=== PATIENT | male | born 1945 | race Caucasian/White ===

== ENCOUNTER 2016-12-06 14:50 | Emergency (ER) | payer BC, MEDICARE ==
[~2016-12-06] VITALS: Ht 170.2 cm; Wt 57.2 kg
[2016-12-06] MEDS ORDERED: MELO7.5T6 PO (15:04)
[2016-12-06] MEDS ORDERED: CYCL10TA PO (15:04)
[2016-12-06] MEDS ORDERED: levothyroxine PO (15:04)
[2016-12-06] MEDS ORDERED: ASPI81TA85 PO (15:04)
[2016-12-06 17:33] VITALS: BP 146/72
[2016-12-06] MEDS ORDERED: PRED20TA PO (17:39)
[2016-12-06] MEDS ORDERED: ULTR50TA PO (17:40)
--- NOTE | 2016-12-06 18:16 | REP ---
Right hip series: Two views. History: Pain. Findings: AP and frog-leg views of the right hip demonstrate osteoarthritis with some superior joint space narrowing and femoral and acetabular spurring. No bony erosive or destructive lesion is seen. Vascular calcification is noted. Periarticular soft tissues are otherwise unremarkable. Impression: Mild to moderate right hip joint osteoarthritis. No acute bony abnormality. Signed by Jef Cox MD 12/06/2016 07:00 P
== END 2016-12-06 17:50 | disposition home or self-care (01) ==
LOC: M ED 15:54
DX: M16.11 Unilateral primary osteoarthritis, right hip (principal); M25.50 Pain in unspecified joint; F17.210 Nicotine dependence, cigarettes, uncomplicated; Z79.899 Other long term (current) drug therapy; Z79.82 Long term (current) use of aspirin

== ENCOUNTER 2019-01-20 18:46 | Emergency (ER) | payer MEDICARE, OTHER ==
[~2019-01-20] VITALS: Ht 170.2 cm; Wt 52.3 kg
[~2019-01-20 18:46] MED LIST: ASPI81TA85 PO; CYCL10TA PO; MELO7.5T7 PO; PRED20TA PO; ULTR50TA8 PO; levothyroxine PO
[2019-01-20] MEDS ORDERED: FLOM0.4C39 PO (19:02)
[2019-01-20] MEDS ORDERED: FINA5TAB2 PO (19:02)
[2019-01-20] MEDS ORDERED: ATOR40TA75 PO (19:02)
[2019-01-20] MEDS ORDERED: KETOROLAC 30 MG/ML VIAL (J1885) IV ONE (19:45)
[2019-01-20 20:07] LABS: BASO # 0.1 10^3/uL (0.0-0.2); BASO % 0.6 % (0.0-1.0); EOS # 0.4 10^3/uL (0.0-0.50); EOS % 3.9 % (0.0-3.0); HEMATOCRIT 36.2 % (42.0-52.0); HEMOGLOBIN 11.6 g/dl (13.5-17.5); LYMPH # 2.4 10^3/uL (1.5-4.5); LYMPH % 26.4 % (24.0-44.0); MEAN CORPUSCULAR HEMOGLOBIN 29.1 pg (27.0-33.0); MEAN CORPUSCULAR VOLUME 90.7 fl (80.0-96.0); MONO # 0.7 10^3/uL (0.0-0.8); MONO % 7.3 % (0.0-5.0); NEUTROPHILS # 5.6 10^3/uL (1.8-7.7); NEUTROPHILS % 61.6 % (36.0-66.0); PLATELET COUNT, AUTOMATED 209 10^3/uL (150-450); RED BLOOD COUNT 3.99 10^6/uL (4.30-6.10)
[2019-01-20] MEDS ORDERED: ISOVUE-370 76% 100ML VIAL (Q9967) As Ordered ONE (20:17)
--- NOTE | 2019-01-20 22:06 | REPVR ---
EXAM: CT Abdomen and Pelvis With Contrast EXAM DATE/TIME: 01/20/2019 8:23 PM CLINICAL HISTORY: 73 years old, male; Abdominal pain; Localized; Lower; Additional info: Lower abd pain, R inguinal bulge TECHNIQUE: Imaging protocol: Axial computed tomography images of the abdomen and pelvis with intravenous contrast. Coronal and sagittal reformatted images were created and reviewed. Radiation optimization: All CT scans at this facility use at least one of these dose optimization techniques: automated exposure control; mA and/or kV adjustment per patient size (includes targeted exams where dose is matched to clinical indication); or iterative reconstruction. Contrast material: ISOVUE 370;Contrast volume: 100 ml;Contrast route: IV; COMPARISON: CR Hip, Ap,Lat 12/06/2016 5:03 PM FINDINGS: Liver: Normal. No mass. Gallbladder and bile ducts: Normal. No calcified stones. No ductal dilation. Pancreas: Normal. No ductal dilation. Spleen: Normal. No splenomegaly. Adrenals: Normal. No mass. Kidneys and ureters: There are punctate bilateral renal calcifcations without hydronephrosis. Stomach and bowel: Extensive diverticulosis without diverticulitis. Mild jejunal thickening. No obstruction. Appendix: No evidence of appendicitis. Intraperitoneal space: Normal. No free air. No significant fluid collection. Vasculature: There is atherosclerosis of the aorta. Lymph nodes: Normal. No enlarged lymph nodes. Bladder: Unremarkable as visualized. Reproductive: Unremarkable as visualized. Bones/joints: There is L5-S1 disc space narrowing and endplate osteophytosis with severe bilateral neural foraminal narrowing. Soft tissues: Unremarkable. IMPRESSION: Mild jejunal thickening which can be seen with enteritis. Electronically signed by: Fauzia Ramirez On 01/20/2019 22:05:52 PM
[2019-01-20 22:25] VITALS: BP 135/62
== END 2019-01-20 22:33 | disposition home or self-care (01) ==
LOC: M ED 18:46
DX: K40.90 Unilateral inguinal hernia, without obstruction or gangrene, not specified as recurrent (principal); R10.31 Right lower quadrant pain; E78.5 Hyperlipidemia, unspecified; E03.9 Hypothyroidism, unspecified; Z72.0 Tobacco use; Z79.899 Other long term (current) drug therapy
CPT/HCPCS: 74177; 80047; 85025; 96374; 99284; J1885; Q9967

== ENCOUNTER 2019-08-05 17:30 | Emergency (ER) | payer OTHER ==
[~2019-08-05] VITALS: Ht 170.2 cm; Wt 53.2 kg
[~2019-08-05 17:30] MED LIST changes: +ATOR40TA75 PO; +FINA5TAB2 PO; +FLOM0.4C39 PO
[2019-08-05] MEDS ORDERED: MECLIZINE 25 MG TABLET PO ONE (19:00)
[2019-08-05] MEDS ORDERED: NS 1,000 ML IV ONE (19:00)
[2019-08-05] MEDS ORDERED: BUPIVACAINE HCL 0.25% 10 ML VIAL SC ONE (19:00)
[2019-08-05 19:12] LABS: BASO % 0.3 % (0.0-1.0); EOS % 0.2 % (0.0-3.0); HEMATOCRIT 37.4 % (42.0-52.0); HEMOGLOBIN 11.9 g/dl (13.5-17.5); LYMPH # 1.6 10^3/uL (1.5-5.0); LYMPH % 13.3 % (24.0-44.0); MEAN CORPUSCULAR HEMOGLOBIN 28.1 pg (27.0-33.0); MEAN CORPUSCULAR HGB CONC 31.8 g/dl (32.0-36.5); MEAN CORPUSCULAR VOLUME 88.4 fl (80.0-96.0); MONO % 7.7 % (0.0-5.0); NEUTROPHILS # 9.6 10^3/uL (1.5-8.5); NEUTROPHILS % 78.1 % (36.0-66.0); PLATELET COUNT, AUTOMATED 187 10^3/uL (150-450); RED BLOOD COUNT 4.23 10^6/uL (4.30-6.10); WHITE BLOOD COUNT 12.3 10^3/uL (4.0-10.0)
--- NOTE | 2019-08-05 19:19 | REPVR ---
PROCEDURE INFORMATION: Exam: CT Head Without Contrast Exam date and time: 08/05/2019 6:57 PM Age: 74 years old Clinical indication: Dizziness TECHNIQUE: Imaging protocol: Computed tomography of the head without contrast. Radiation optimization: All CT scans at this facility use at least one of these dose optimization techniques: automated exposure control; mA and/or kV adjustment per patient size (includes targeted exams where dose is matched to clinical indication); or iterative reconstruction. COMPARISON: No relevant prior studies available. FINDINGS: Brain: There is no acute cortical infarction, intracranial hemorrhage or mass. Ventricles: The ventricles appear mildly enlarged, but not out of proportion to the degree of parenchymal volume loss. Bones/joints: Unremarkable. No acute fracture. Sinuses: Visualized sinuses are unremarkable. No fluid levels. Mastoid air cells: Visualized mastoid air cells are well aerated. Soft tissues: Unremarkable. IMPRESSION: No acute intracranial findings. Electronically signed by: Swathi La On 08/05/2019 19:18:48 PM
[2019-08-05 19:44] LABS: ALBUMIN 3.4 GM/DL (3.2-5.2); ALT/SGPT 21 U/L (12-78); BILIRUBIN,DIRECT 0.3 MG/DL (0.0-0.2); BILIRUBIN,TOTAL 0.8 MG/DL (0.2-1.0); BLOOD UREA NITROGEN 27 MG/DL (7-18); CALCIUM LEVEL 8.6 MG/DL (8.8-10.2); CARBON DIOXIDE LEVEL 27 MEQ/L (21-32); CHLORIDE LEVEL 101 MEQ/L (98-107); CK-MB VALUE MASS 5.2 NG/ML (<3.6); CPK CREATINE PHOSPHOKINASE 262 U/L (39-308); CREATININE FOR GFR 1.26 MG/DL (0.70-1.30); GLOMERULAR FILTRATION RATE 59.7 (>42); GLUCOSE, FASTING 79 MG/DL (70-100); MB/CK RELATIVE INDEX 1.98 (< OR =4); POTASSIUM SERUM 4.2 MEQ/L (3.5-5.1); SODIUM LEVEL 137 MEQ/L (136-145); TOTAL PROTEIN 6.5 GM/DL (6.4-8.2); TROPONIN I < 0.02 NG/ML (< 0.10)
[2019-08-05 20:45] VITALS: BP 123/60
[2019-08-05] MEDS ORDERED: CETI10CA2 PO (20:53)
[2019-08-05] MEDS ORDERED: FLON1SPR NARES (20:53)
[2019-08-05] MEDS ORDERED: MECL1TAB31 PO (20:53)
--- NOTE | 2019-08-06 05:50 | ECGEPIP ---
[facility] - ED Test Date: 2019-08-05 Pat Name: LES HUA Department: Room: - Gender: Male Management Professor: BRUCE : 1945 Requested By: TONY PRICE Order Number: [id number] Reading MD: Tony Terrazas Measurements Intervals [place] Rate: 72 P: 79 CA: 207 QRS: 58 QRSD: 93 T: 73 QT: 387 QTc: 426 Interpretive Statements SINUS RHYTHM Comparison tracing not on file Electronically Signed on 08-06-2019 5:50:32 EST by Tony Terrazas
== END 2019-08-05 21:46 | disposition home or self-care (01) ==
LOC: M ED 17:30
DX: H65.03 Acute serous otitis media, bilateral (principal); H81.399 Other peripheral vertigo, unspecified ear; M25.512 Pain in left shoulder; E78.5 Hyperlipidemia, unspecified; F17.210 Nicotine dependence, cigarettes, uncomplicated; Z79.899 Other long term (current) drug therapy

== ENCOUNTER 2019-12-26 14:00 | Emergency (ER) | payer MEDICARE, OTHER ==
[~2019-12-26] VITALS: Ht 170.2 cm; Wt 51.2 kg
[~2019-12-26 14:00] MED LIST changes: +CETI10CA2 PO; +CYCL-707 PO; -CYCL10TA PO; +FLON1SPR NARES; +MECL1TAB31 PO
[2019-12-26 14:51] LABS: BASO # 0.1 10^3/uL (0.0-0.2); BASO % 0.8 % (0.0-1.0); EOS # 0.5 10^3/uL (0.0-0.5); EOS % 7.3 % (0.0-3.0); HEMATOCRIT 38.8 % (42.0-52.0); LYMPH # 2.5 10^3/uL (1.5-5.0); LYMPH % 39.1 % (24.0-44.0); MEAN CORPUSCULAR HEMOGLOBIN 27.8 pg (27.0-33.0); MEAN CORPUSCULAR HGB CONC 30.9 g/dl (32.0-36.5); MONO # 0.4 10^3/uL (0.0-0.8); NEUTROPHILS # 2.9 10^3/uL (1.5-8.5); NEUTROPHILS % 45.6 % (36.0-66.0); PLATELET COUNT, AUTOMATED 213 10^3/uL (150-450); RED BLOOD COUNT 4.31 10^6/uL (4.30-6.10); WHITE BLOOD COUNT 6.3 10^3/uL (4.0-10.0)
--- NOTE | 2019-12-26 14:57 | REP ---
Clinical: Chest pain . Comparison: 03/23/2013 . Findings: The mediastinum and cardiac silhouette are stable and within normal limits for portable technique. The lung harris demonstrate chronic changes without acute consolidation, effusion, or pneumothorax. Skeletal structures are intact. Impression: No acute cardiopulmonary process appreciated. Electronically Signed by Kun Mabry MD 12/26/2019 02:48 P
[2019-12-26 15:02] LABS: INR 1.02; PROTHROMBIN TIME 13.1 SECONDS (11.8-14.0)
[2019-12-26 15:03] LABS: PARTIAL THROMBOPLASTIN TIME 29.8 SECONDS (25.0-38.4)
--- NOTE | 2019-12-26 15:07 | REP ---
Clinical: Neck pain radiating to the left shoulder. Technique: Axial noncontrast images from the skull base to the thoracic inlet with coronal and sagittal re-formations. Comparison: None Findings: Osteopenia and advanced multilevel degenerative changes are appreciated. Generalized findings include endplate sclerosis, osteophytosis, and elements of disc space narrowing. Partially calcified disc material and posterior disc bulge at C5-6, C7-T1, and small posterior disc bulge at C4-5 are identified along with partial fusion of the C6-7. Associated canal stenosis at the C5-6 level to approximately 7.5 mm AP diameter noted. Multilevel facet arthropathy with narrowing of the neural foramen primarily noted at the left C4-5 and 05/06 levels is also appreciated. There is no evidence for acute fracture / compression injury or acute subluxation. Paravertebral soft tissues are within normal limits. Impression: Advanced multilevel degenerative spondylosis. Electronically Signed by Kun Mabry MD 12/26/2019 02:58 P
[2019-12-26 15:22] LABS: ALBUMIN 4.1 GM/DL (3.2-5.2); ALT/SGPT 22 U/L (12-78); BILIRUBIN,DIRECT 0.2 MG/DL (0.0-0.2); BILIRUBIN,TOTAL 0.5 MG/DL (0.2-1.0); BLOOD UREA NITROGEN 17 MG/DL (7-18); CARBON DIOXIDE LEVEL 29 MEQ/L (21-32); CHLORIDE LEVEL 108 MEQ/L (98-107); CK-MB VALUE MASS 4.5 NG/ML (<3.6); CPK CREATINE PHOSPHOKINASE 228 U/L (39-308); CREATININE FOR GFR 1.12 MG/DL (0.70-1.30); GLOMERULAR FILTRATION RATE > 60.0 (>42); GLUCOSE, FASTING 76 MG/DL (70-100); LIPASE 117 U/L (73-393); MB/CK RELATIVE INDEX 1.97 (< OR =4); POTASSIUM SERUM 4.5 MEQ/L (3.5-5.1); SODIUM LEVEL 142 MEQ/L (136-145); TOTAL PROTEIN 6.9 GM/DL (6.4-8.2); TROPONIN I < 0.02 NG/ML (< 0.10)
[2019-12-26] MEDS ORDERED: GABA-1171 PO (15:39)
--- NOTE | 2019-12-26 15:59 | ECGEPIP ---
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
[2019-12-26 16:10] VITALS: BP 156/72
== END 2019-12-26 16:11 | disposition home or self-care (01) ==
LOC: M ED 14:00
DX: M50.10 Cervical disc disorder with radiculopathy, unspecified cervical region (principal); E78.5 Hyperlipidemia, unspecified; E03.9 Hypothyroidism, unspecified; F17.210 Nicotine dependence, cigarettes, uncomplicated; Z79.899 Other long term (current) drug therapy

== ENCOUNTER 2020-12-19 17:53 | Emergency (ER) | payer MEDICARE, OTHER ==
[~2020-12-19] VITALS: Ht 170.2 cm; Wt 52.1 kg
[~2020-12-19 17:53] MED LIST changes: -ASPI81TA85 PO; +ASPI81TA86 PO; +GABA-1171 PO
[2020-12-19 19:47] LABS: HEMOGLOBIN 11.6 g/dl (13.5-17.5); MEAN CORPUSCULAR HEMOGLOBIN 27.6 pg (27.0-33.0); MEAN CORPUSCULAR HGB CONC 31.4 g/dl (32.0-36.5); MEAN CORPUSCULAR VOLUME 87.9 fl (80.0-96.0); PLATELET COUNT, AUTOMATED 218 10^3/uL (150-450); RED BLOOD COUNT 4.21 10^6/uL (4.30-6.10); WHITE BLOOD COUNT 9.1 10^3/uL (4.0-10.0)
[2020-12-19 20:04] LABS: BLOOD UREA NITROGEN 19 MG/DL (7-18); CALCIUM LEVEL 8.6 MG/DL (8.8-10.2); CARBON DIOXIDE LEVEL 30 MEQ/L (21-32); CHLORIDE LEVEL 109 MEQ/L (98-107); GLOMERULAR FILTRATION RATE > 60.0 (>42); GLUCOSE, FASTING 91 MG/DL (70-100); POTASSIUM SERUM 4.9 MEQ/L (3.5-5.1); SODIUM LEVEL 139 MEQ/L (136-145)
[2020-12-19] MEDS ORDERED: NS 1,000 ML IV ONE (20:55)
[2020-12-19] MEDS ORDERED: ISOVUE-370 76% 100ML VIAL As Ordered ONE (21:04)
[2020-12-19 21:13] LABS: ALBUMIN 3.5 GM/DL (3.2-5.2); ALT/SGPT 19 U/L (12-78); BILIRUBIN,DIRECT 0.1 MG/DL (0.0-0.2); BILIRUBIN,TOTAL 0.4 MG/DL (0.2-1.0); LIPASE 137 U/L (73-393); TOTAL PROTEIN 6.4 GM/DL (6.4-8.2)
--- NOTE | 2020-12-19 22:17 | REPVR ---
PROCEDURE INFORMATION: Exam: CT Abdomen And Pelvis With Contrast Exam date and time: 12/19/2020 9:14 PM Age: 75 years old Clinical indication: Other: Rlq abd pain; Additional info: Right lower quadrant abdominal pain TECHNIQUE: Imaging protocol: Computed tomography of the abdomen and pelvis with contrast. Radiation optimization: All CT scans at this facility use at least one of these dose optimization techniques: automated exposure control; mA and/or kV adjustment per patient size (includes targeted exams where dose is matched to clinical indication); or iterative reconstruction. Contrast material: ISOVUE 370; Contrast volume: 100 ml; Contrast route: INTRAVENOUS (IV); COMPARISON: CT ABD/PEL W/IV CONTRAST ONLY 01/20/2019 8:22 PM FINDINGS: Liver: Unremarkable. No mass. Gallbladder and bile ducts: Normal. No calcified stones. No ductal dilation. Pancreas: Normal. No ductal dilation. Spleen: Normal. No splenomegaly. Adrenal glands: Normal. No mass. Kidneys and ureters: Unremarkable. No calculi or hydronephrosis. Stomach and bowel: Mild intraluminal fluid and mucosal enhancement in the small bowel. No wall thickening or other inflammatory changes. No bowel obstruction. Moderate amount of fecal material in the colon. The stomach and colon are otherwise unremarkable. Appendix: No evidence of appendicitis. Intraperitoneal space: No free air. No significant fluid collection. Vasculature: Advanced aortoiliac atherosclerotic disease. No aneurysm or dissection. Lymph nodes: Unremarkable. No enlarged lymph nodes. Urinary bladder: Unremarkable as visualized. Reproductive: Unremarkable as visualized. Bones/joints: There are advanced degenerative changes in the spine and pelvis. Soft tissues: Unremarkable. IMPRESSION: 1. Mild mucosal enhancement and intraluminal fluid in the small bowel is nonspecific but may indicate a viral enteritis. No bowel obstruction. 2. Constipation. Electronically signed by: Gurwinder Can On 12/19/2020 22:16:38 PM
[2020-12-19] MEDS ORDERED: MAGNESIUM CITRATE 300 ML BTL PO ONE (22:45)
[2020-12-19 22:58] VITALS: BP 159/74
== END 2020-12-19 23:00 | disposition home or self-care (01) ==
LOC: M ED 17:53
DX: K40.90 Unilateral inguinal hernia, without obstruction or gangrene, not specified as recurrent (principal); K59.00 Constipation, unspecified; E03.9 Hypothyroidism, unspecified; E78.5 Hyperlipidemia, unspecified; Z79.899 Other long term (current) drug therapy
CPT/HCPCS: 74177; 80048; 80076; 83690; 85027; 99283; Q9967

== ENCOUNTER → 2021-02-05 | Outpatient (CLI) | payer MEDICARE, OTHER | LOC: M LABSMTC 09:06 | PROVIDERS: ATTEND Anesthesiology | DX: Z01.818 Encounter for other preprocedural examination (principal); Z11.52 Encounter for screening for COVID-19 ==

== ENCOUNTER 2021-02-09 07:30 | Day surgery (SDC) | payer OTHER ==
[~2021-02-09] VITALS: Ht 170.2 cm; Wt 49.4 kg
[~2021-02-09 07:30] MED LIST changes: +B-122500 PO; +DONETAB5 PO; +GABA-282 PO; +LEVO88TA3 PO; +LR 1,000 ML IV ONE; +MELO15TA28 PO; +NOXI1TAB PO; +ceFAZolin SOD 2 GM in IV 1 EA IV ONE
[2021-02-09] MEDS ORDERED: BUPIVACAINE/EPIN 0.25% 30 ML VIAL As Ordered ONE (09:23)
[2021-02-09] MEDS ORDERED: ROCURONIUM BROMIDE 50 MG/5 ML VIAL As Ordered ONE (09:50)
[2021-02-09] MEDS ORDERED: METOCLOPRAMIDE INJ 10MG/2ML VIAL (J2765 PER 1) As Ordered ONE (09:50)
[2021-02-09] MEDS ORDERED: MIDAZOLAM INJ 2MG/2ML VIAL (J2250 PER 1MG) As Ordered ONE (09:50)
[2021-02-09] MEDS ORDERED: propofoL 200 MG/20 ML VIAL As Ordered ONE (09:50)
[2021-02-09] MEDS ORDERED: ONDANSETRON 4MG/2ML VIAL As Ordered ONE (09:50)
[2021-02-09] MEDS ORDERED: LIDOCAINE 2% 100MG/5ML SDV (FOR ANES.) As Ordered ONE (09:50)
[2021-02-09] MEDS ORDERED: fentaNYL 250 MCG/5 ML INJECTION (J3010) As Ordered ONE (09:50)
[2021-02-09] MEDS ORDERED: dexameTHASONE 4 MG/ML 1ML VIAL (J1100 PER 1MG) As Ordered ONE (09:50)
[2021-02-09] MEDS ORDERED: SUGAMMADEX SODIUM 500 MG/5 ML VIAL (BRIDION) As Ordered ONE (09:50)
[2021-02-09] MEDS ORDERED: ACETAMINOPHEN 1000MG 100ML IV BTL (OFIRMEV) (J0131 PER 10MG) As Ordered ONE (09:51)
[2021-02-09] MEDS ORDERED: KETOROLAC 60MG 2ML VIAL As Ordered ONE (09:58)
[2021-02-09] MEDS ORDERED: oxyCODONE 5MG TAB PO PRN (11:05)
[2021-02-09] MEDS ORDERED: fentaNYL 100 MCG/2 ML INJECTION (J3010) IV PRN (11:05)
[2021-02-09] MEDS ORDERED: METOCLOPRAMIDE INJ 10MG/2ML VIAL (J2765 PER 1) IV PRN (11:05)
[2021-02-09] MEDS ORDERED: ONDANSETRON 4MG/2ML VIAL IV PRN (11:05)
[2021-02-09] MEDS ORDERED: LR 1,000 ML IV SCH (11:05)
[2021-02-09] MEDS ORDERED: traMADol 50 MG TAB PO PRN (11:15)
--- NOTE | 2021-02-09 11:35 | RO ---
OPERATIVE NOTE DATE OF OPERATION: 02/09/2021 PREOPERATIVE DIAGNOSIS: Right inguinal hernia. POSTOPERATIVE DIAGNOSIS: Right inguinal/femoral hernia. PROCEDURE: Robotic-assisted laparoscopic right inguinal/femoral hernia repair with ProGrip mesh. SURGEON: Andrei Thompson Jr, MD SOLUTIONS DEVELOPER: Libertad Iglesias (provided trocar placement, instrument exchange, mesh placement, abdominal wall closure). ANESTHESIA: EBL: Minimal. FLUIDS: Crystalloid. DESCRIPTION OF PROCEDURE: The patient was taken to the operating room, was given general anesthesia. After adequate anesthesia and preoperative antibiotics were given, the patient was prepped and draped in sterile fashion. A supraumbilical incision was made with skin knife. Blunt dissection was carried down to fascia. Fascia was entered with Veress needle, insufflated to 15 mm of pressure. Dilating 8 mm trocar was placed and under direct visualization two lateral 8 mm trocars were placed. The patient was placed in steep Trendelenburg and the robot was docked. The right inguinal area was dissected in the following manner: The peritoneum was taken down with monopolar cut scissors and a plane was entered and dissected off the cord structures, then medially off the vessels, the vas and the Yosvany's ligament area where femoral hernia was appreciated. There was also somewhat of significant diastasis of the abdominal wall where a direct hernia would be and just lateral to the epigastrics as well. This was more pronounced on the right-hand side than the left-hand side. In any case, after mobilizing the contents out of the femoral canal and off Yosvany's ligament, the ProGrip mesh was cut to the appropriate size, placed in preperitoneal space and pressed into position. Abdomen was desufflated to 9 mm of pressure and the peritoneum was closed over the defect with 3-0 V-Loc suture. All trocars were removed under direct visualization. 4-0 Vicryl was used to close all skin. Steri-Strips and dry, sterile dressing were applied. The patient was awakened, extubated and brought to the recovery room awake, alert, hemodynamically stable. Sponge and needle counts correct x2.
[2021-02-09 12:15] VITALS: BP 150/64
== END 2021-02-09 12:25 | disposition home or self-care (01) ==
LOC: M SDC 07:30
PROVIDERS: ATTEND Surgery
DX: K40.90 Unilateral inguinal hernia, without obstruction or gangrene, not specified as recurrent (principal); E78.00 Pure hypercholesterolemia, unspecified; E03.9 Hypothyroidism, unspecified; K59.00 Constipation, unspecified; M54.9 Dorsalgia, unspecified; G62.9 Polyneuropathy, unspecified; N40.0 Benign prostatic hyperplasia without lower urinary tract symptoms; J44.9 Chronic obstructive pulmonary disease, unspecified; F17.210 Nicotine dependence, cigarettes, uncomplicated; Z79.899 Other long term (current) drug therapy
CPT/HCPCS: 49650; C1781; J0131; J0690; J1100; J1885; J2250; J2405; J2765; J3010; S2900

== ENCOUNTER → 2021-09-26 | Outpatient (CLI) | payer OTHER ==
[~2021-09-26] MED LIST changes: +ATOR80TA59 PO; +DONE5TAB86 PO; -DONETAB5 PO; +FLOV250A IN; -LR 1,000 ML IV ONE; +OMEP40CA5 PO; +PROAAER10 INH; +ROSU40TA4 PO; +VITA-183 PO; -ceFAZolin SOD 2 GM in IV 1 EA IV ONE
== END ==
LOC: M LABSMTC 09:08
PROVIDERS: ATTEND Anesthesiology
DX: Z01.818 Encounter for other preprocedural examination (principal); Z11.52 Encounter for screening for COVID-19

== ENCOUNTER 2021-10-01 11:05 | Day surgery (SDC) | payer OTHER ==
[~2021-10-01] VITALS: Ht 165.1 cm; Wt 46.7 kg
[~2021-10-01 11:05] MED LIST changes: +NS 1,000 ML IV ONE
[2021-10-01] MEDS ORDERED: LIDOCAINE 2% 100MG/5ML SDV (FOR ANES.) As Ordered ONE (12:41)
[2021-10-01] MEDS ORDERED: propofoL 200 MG/20 ML VIAL As Ordered ONE (12:41)
[2021-10-01] MEDS ORDERED: fentaNYL 100 MCG/2 ML INJECTION As Ordered ONE (12:42)
[2021-10-01 13:30] VITALS: BP 151/70
== END 2021-10-01 13:40 | disposition home or self-care (01) ==
LOC: M OPP 11:05
PROVIDERS: ATTEND Internal Medicine Gastroenterology
DX: Z12.11 Encounter for screening for malignant neoplasm of colon (principal); K57.30 Diverticulosis of large intestine without perforation or abscess without bleeding; K64.8 Other hemorrhoids; K22.89 Other specified disease of esophagus; K22.4 Dyskinesia of esophagus; K29.70 Gastritis, unspecified, without bleeding; R63.4 Abnormal weight loss; R53.83 Other fatigue; Z79.899 Other long term (current) drug therapy; Z80.8 Family history of malignant neoplasm of other organs or systems
CPT/HCPCS: 43239; 45378; 88305; 88312; 88342; J3010

== ENCOUNTER → 2021-11-02 | Outpatient (CLI) | payer OTHER ==
[~2021-11-02] MED LIST changes: -NS 1,000 ML IV ONE
== END ==
LOC: M RAD 08:14
PROVIDERS: ATTEND Internal Medicine Gastroenterology
DX: N20.0 Calculus of kidney (principal); K82.0 Obstruction of gallbladder

== ENCOUNTER → 2021-12-27 | Outpatient (REF) | payer OTHER | LOC: M LAB REF 10:18 | PROVIDERS: ATTEND Internal Medicine Gastroenterology | DX: R63.4 Abnormal weight loss (principal) ==

== ENCOUNTER 2022-03-29 11:41 | Inpatient (IN) | payer OTHER ==
[~2022-03-29] VITALS: Ht 167.6 cm; Wt 48.3 kg
[2022-03-29] MEDS ORDERED: MAGN400T2 PO (12:02)
[2022-03-29 12:50] LABS: BASO # 0.1 10^3/uL (0.0-0.2); BASO % 0.4 % (0.0-1.0); EOS # 0.2 10^3/uL (0.0-0.5); EOS % 1.1 % (0.0-3.0); HEMATOCRIT 33.6 % (42.0-52.0); HEMOGLOBIN 10.4 g/dl (13.5-17.5); LYMPH # 2.3 10^3/uL (1.5-5.0); LYMPH % 15.1 % (24.0-44.0); MEAN CORPUSCULAR HEMOGLOBIN 28.1 pg (27.0-33.0); MEAN CORPUSCULAR VOLUME 90.8 fl (80.0-96.0); MONO # 0.8 10^3/uL (0.0-0.8); MONO % 5.2 % (2.0-8.0); NEUTROPHILS % 77.8 % (36.0-66.0); PLATELET COUNT, AUTOMATED 234 10^3/uL (150-450); WHITE BLOOD COUNT 15.4 10^3/uL (4.0-10.0)
[2022-03-29 13:30] LABS: RSV AMPLIFICATION NEGATIVE (NEGATIVE)
[2022-03-29 13:40] LABS: ALBUMIN 3.4 GM/DL (3.2-5.2); BILIRUBIN,DIRECT 0.2 MG/DL (0.0-0.2); BILIRUBIN,TOTAL 0.6 MG/DL (0.2-1.0); CALCIUM LEVEL 9.4 MG/DL (8.8-10.2); CREATININE FOR GFR 1.85 MG/DL (0.70-1.30); POTASSIUM SERUM 3.8 MEQ/L (3.5-5.1); THYROID STIMULATING HORMONE 1.32 uIU/ML (0.358-3.740); THYROXINE (T4) 10.9 UG/DL (4.5-12.0); TOTAL PROTEIN 6.9 GM/DL (6.4-8.2)
[2022-03-29 13:44] LABS: CK-MB VALUE MASS 6.9 NG/ML (<3.6); MB/CK RELATIVE INDEX 4.08 (< OR =4)
[2022-03-29] MEDS ORDERED: NS 1,480 ML in IV 1 EA IV ONE (14:40)
[2022-03-29] MEDS ORDERED: cefTRIAXone SOD 2 GM in D5W MINI-BAG PLUS 50 ML IV ONE (14:40)
[2022-03-29 16:14] LABS: APPEARANCE, URINE MANUAL CLEAR (CLEAR); COLOR, URINE MANUAL YELLOW (YELLOW)
[2022-03-29 16:16] LABS: PROTEIN, URINE MANUAL TRACE mg/dL (NEGATIVE); SPECIFIC GRAVITY,URINE MANUAL 1.015 (1.002-1.035)
[2022-03-29 16:17] LABS: BILIRUBIN, URINE MANUAL NEGATIVE (NEGATIVE); BLOOD URINE MANUAL POSITIVE (NEGATIVE); GLUCOSE, URINE (UA) MANUAL NEGATIVE (NEGATIVE); KETONE, URINE MANUAL NEGATIVE (NEGATIVE); LEUKOCYTE ESTERASE, URINE MAN NEGATIVE (NEGATIVE); NITRITE, URINE MANUAL NEGATIVE (NEGATIVE); UROBILINOGEN, URINE MANUAL NORMAL (NORMAL)
[2022-03-29 16:44] LABS: BACTERIA, URINE SMALL AMOUNT; HYALINE CAST, URINE NONE SEEN /lpf (0-1); RBC, URINE TNTC /hpf (0-3); SQUAMOUS EPITHELIAL CELL URINE SMALL AMOUNT /hpf (SMALL AMT)
[2022-03-29 16:45] LABS: MUCUS, URINE MOD AMOUNT (NEGATIVE)
[2022-03-29 16:48] LABS: HEMOGLOBIN A1c 5.3 %
[2022-03-29] MEDS ORDERED: ADV100INH INH (17:58)
[2022-03-29] MEDS ORDERED: GABA-1171 PO (17:58)
[2022-03-29] MEDS ORDERED: DONE5TAB82 PO (17:58)
[2022-03-29] MEDS ORDERED: ALBU8.5H INH (17:58)
[2022-03-29] MEDS ORDERED: ALEV220T22 PO (17:59)
[2022-03-29] MEDS ORDERED: HOME MED LIST COMPLETE! XX SCH (18:00)
[2022-03-29] MEDS: NS 1,000 ML IV SCH (18:05)
[2022-03-29] MEDS ORDERED: ALBUTEROL 90 MCG/ACT 8GM HFA INHALER INH PRN (18:15)
[2022-03-29] MEDS: ADVAIR HFA 45/21MCG INHALER INH SCH (20:00)
[2022-03-29] MEDS ORDERED: HEPARIN SOD (PORCINE) 5000UNITS/ML 1ML VIAL/SYRINGE SC SCH (21:00)
[2022-03-29 21:04] VITALS: BP 140/65
[2022-03-29] MEDS: AZITHROMYCIN 250MG TABLET PO SCH (21:21)
[2022-03-29] MEDS: ROSUVASTATIN 10 MG TAB (CRESTOR) PO SCH (21:21)
[2022-03-29] MEDS: ACETAMINOPHEN TAB 650MG DOSE (2X325MG) PO PRN (21:22)
[2022-03-29] MEDS: HEPARIN SOD (PORCINE) 5000UNITS/ML 1ML VIAL/SYRINGE SC SCH (21:22)
[2022-03-29 22:26] VITALS: O2SAT 97
[2022-03-30] VITALS (7 sets, daily range): BP systolic 98–127; BP diastolic 40–60; O2SAT 97–98
[2022-03-30] MEDS: LEVOTHYROXINE 88MCG TABLET (0.088 MG) PO SCH (05:30)
[2022-03-30] MEDS: HEPARIN SOD (PORCINE) 5000UNITS/ML 1ML VIAL/SYRINGE SC SCH ×3 (05:30→21:02)
[2022-03-30] MEDS: NS 1,000 ML IV SCH (05:31)
[2022-03-30 05:33] LABS: BASO % 0.2 % (0.0-1.0); EOS # 0.4 10^3/uL (0.0-0.5); HEMOGLOBIN 8.9 g/dl (13.5-17.5); LYMPH # 1.6 10^3/uL (1.5-5.0); LYMPH % 12.1 % (24.0-44.0); MEAN CORPUSCULAR HGB CONC 30.7 g/dl (32.0-36.5); MEAN CORPUSCULAR VOLUME 91.2 fl (80.0-96.0); MONO # 0.9 10^3/uL (0.0-0.8); NEUTROPHILS % 77.3 % (36.0-66.0); PLATELET COUNT, AUTOMATED 218 10^3/uL (150-450); RED BLOOD COUNT 3.18 10^6/uL (4.30-6.10); WHITE BLOOD COUNT 12.9 10^3/uL (4.0-10.0)
[2022-03-30] MEDS: ACETAMINOPHEN TAB 650MG DOSE (2X325MG) PO PRN ×2 (05:35→14:52)
[2022-03-30 06:05] LABS: BLOOD UREA NITROGEN 30 MG/DL (7-18); CALCIUM LEVEL 8.1 MG/DL (8.8-10.2); CARBON DIOXIDE LEVEL 25 MEQ/L (21-32); CHLORIDE LEVEL 111 MEQ/L (98-107); CREATININE FOR GFR 1.24 MG/DL (0.70-1.30); GLOMERULAR FILTRATION RATE > 60.0 (>42); GLUCOSE, FASTING 89 MG/DL (70-100); POTASSIUM SERUM 3.9 MEQ/L (3.5-5.1); SODIUM LEVEL 140 MEQ/L (136-145)
[2022-03-30] MEDS: ADVAIR HFA 45/21MCG INHALER INH SCH ×2 (07:11→19:42)
[2022-03-30] MEDS: MAGNESIUM OXIDE 400MG TAB (MAG-OX) PO SCH (09:00)
[2022-03-30] MEDS: DONEPEZIL 5 MG TAB PO SCH (09:01)
[2022-03-30] MEDS: TAMSULOSIN 0.4 MG CAP PO SCH (09:01)
[2022-03-30] MEDS: FINASTERIDE 5MG TAB PO SCH (09:01)
[2022-03-30] MEDS: cefTRIAXone SOD 1 GM in D5W MINI-BAG PLUS 50 ML IV SCH (15:41)
[2022-03-30] MEDS ORDERED: NS 1,000 ML IV SCH (20:45)
[2022-03-30] MEDS: AZITHROMYCIN 250MG TABLET PO SCH (21:02)
[2022-03-30] MEDS: ROSUVASTATIN 10 MG TAB (CRESTOR) PO SCH (21:03)
[2022-03-31] MEDS: ACETAMINOPHEN TAB 650MG DOSE (2X325MG) PO PRN ×3 (03:31→21:21)
[2022-03-31] MEDS: HEPARIN SOD (PORCINE) 5000UNITS/ML 1ML VIAL/SYRINGE SC SCH ×3 (05:50→21:20)
[2022-03-31] MEDS: LEVOTHYROXINE 88MCG TABLET (0.088 MG) PO SCH (05:50)
[2022-03-31 05:56] LABS: BASO # 0.1 10^3/uL (0.0-0.2); BASO % 0.6 % (0.0-1.0); EOS # 0.4 10^3/uL (0.0-0.5); EOS % 4.3 % (0.0-3.0); LYMPH # 1.9 10^3/uL (1.5-5.0); LYMPH % 21.5 % (24.0-44.0); MEAN CORPUSCULAR HEMOGLOBIN 28.2 pg (27.0-33.0); MEAN CORPUSCULAR HGB CONC 30.8 g/dl (32.0-36.5); MEAN CORPUSCULAR VOLUME 91.5 fl (80.0-96.0); MONO # 0.6 10^3/uL (0.0-0.8); MONO % 7.1 % (2.0-8.0); NEUTROPHILS # 5.9 10^3/uL (1.5-8.5); NEUTROPHILS % 66.2 % (36.0-66.0); PLATELET COUNT, AUTOMATED 217 10^3/uL (150-450); RED BLOOD COUNT 2.84 10^6/uL (4.30-6.10)
[2022-03-31 06:00] VITALS: BP 116/53
[2022-03-31 06:31] LABS: BLOOD UREA NITROGEN 21 MG/DL (7-18); CALCIUM LEVEL 8.6 MG/DL (8.8-10.2); CARBON DIOXIDE LEVEL 26 MEQ/L (21-32); CHLORIDE LEVEL 111 MEQ/L (98-107); CREATININE FOR GFR 1.23 MG/DL (0.70-1.30); GLOMERULAR FILTRATION RATE > 60.0 (>42); GLUCOSE, FASTING 89 MG/DL (70-100); PHOSPHORUS LEVEL 2.7 MG/DL (2.5-4.9); POTASSIUM SERUM 3.8 MEQ/L (3.5-5.1); SODIUM LEVEL 140 MEQ/L (136-145)
[2022-03-31 08:55] VITALS: BP_SYST 113; BP_SYST 85; BP_DIAS 38; BP_DIAS 54
[2022-03-31 09:00] VITALS: BP 100/48; O2SAT 98
[2022-03-31] MEDS ORDERED: NS 1,000 ML IV SCH (09:00)
[2022-03-31] MEDS ORDERED: NS 500 ML IV ONE (09:00)
[2022-03-31] MEDS: ADVAIR HFA 45/21MCG INHALER INH SCH ×2 (09:16→20:31)
[2022-03-31] MEDS: DONEPEZIL 5 MG TAB PO SCH (09:32)
[2022-03-31] MEDS: TAMSULOSIN 0.4 MG CAP PO SCH (09:32)
[2022-03-31] MEDS: MAGNESIUM OXIDE 400MG TAB (MAG-OX) PO SCH (09:33)
[2022-03-31] MEDS: FINASTERIDE 5MG TAB PO SCH (09:33)
[2022-03-31] MEDS: guaiFENesin DM LIQ 10ML UD PO PRN ×2 (11:43→21:20)
[2022-03-31 14:00] VITALS: BP 126/53
[2022-03-31 14:48] VITALS: BP_SYST 114; BP_SYST 122; BP_SYST 125; BP_DIAS 54; BP_DIAS 56; BP_DIAS 57
[2022-03-31] MEDS: cefTRIAXone SOD 1 GM in D5W MINI-BAG PLUS 50 ML IV SCH (16:29)
[2022-03-31 19:25] VITALS: BP 124/51
[2022-03-31] MEDS: AZITHROMYCIN 250MG TABLET PO SCH (21:20)
[2022-03-31] MEDS: ROSUVASTATIN 10 MG TAB (CRESTOR) PO SCH (21:20)
[2022-04-01 05:47] VITALS: BP_SYST 100; BP_SYST 125; BP_SYST 71; BP_DIAS 46; BP_DIAS 49; BP_DIAS 63
[2022-04-01] MEDS: HEPARIN SOD (PORCINE) 5000UNITS/ML 1ML VIAL/SYRINGE SC SCH ×3 (06:04→20:24)
[2022-04-01] MEDS: LEVOTHYROXINE 88MCG TABLET (0.088 MG) PO SCH (06:04)
[2022-04-01] MEDS ORDERED: NS 1,000 ML IV SCH (06:10)
[2022-04-01 06:47] LABS: HEMATOCRIT 25.6 % (42.0-52.0); HEMOGLOBIN 7.9 g/dl (13.5-17.5); MEAN CORPUSCULAR HGB CONC 30.9 g/dl (32.0-36.5); MEAN CORPUSCULAR VOLUME 90.8 fl (80.0-96.0); PLATELET COUNT, AUTOMATED 206 10^3/uL (150-450); RED BLOOD COUNT 2.82 10^6/uL (4.30-6.10); WHITE BLOOD COUNT 8.8 10^3/uL (4.0-10.0)
[2022-04-01] MEDS ORDERED: NS 1,000 ML IV ONE (07:00)
[2022-04-01 07:22] LABS: BLOOD UREA NITROGEN 16 MG/DL (7-18); CALCIUM LEVEL 8.7 MG/DL (8.8-10.2); CARBON DIOXIDE LEVEL 25 MEQ/L (21-32); CHLORIDE LEVEL 113 MEQ/L (98-107); CREATININE FOR GFR 1.18 MG/DL (0.70-1.30); GLOMERULAR FILTRATION RATE > 60.0 (>42); GLUCOSE, FASTING 81 MG/DL (70-100); PHOSPHORUS LEVEL 2.8 MG/DL (2.5-4.9); POTASSIUM SERUM 4.3 MEQ/L (3.5-5.1); SODIUM LEVEL 142 MEQ/L (136-145)
[2022-04-01] MEDS: ADVAIR HFA 45/21MCG INHALER INH SCH ×2 (07:27→19:49)
[2022-04-01] MEDS ORDERED: FLUBLOK(EGG FREE)(QUAD)INFLUENZA VACC 0.5ML SYRINGE 18YRS & OLDER IM.IMMUN ONE (09:00)
[2022-04-01] MEDS ORDERED: PREVNAR-20 VACCINE 0.5ML SYRINGE IM.IMMUN ONE (09:00)
[2022-04-01 09:30] LABS: FERRITIN 129 NG/ML (26-388); IRON (FE) 46 UG/DL (65-175); PERCENT SATURATION 29.7 % (19.7-50.0); TOTAL IRON BINDING CAPACITY 155 UG/DL (250-450)
[2022-04-01] MEDS: MAGNESIUM OXIDE 400MG TAB (MAG-OX) PO SCH (09:33)
[2022-04-01] MEDS: DONEPEZIL 5 MG TAB PO SCH (09:33)
[2022-04-01] MEDS: FINASTERIDE 5MG TAB PO SCH (09:33)
[2022-04-01 10:05] LABS: VITAMIN B12 LEVEL 1112 PG/ML (247-911)
[2022-04-01] MEDS: ACETAMINOPHEN TAB 650MG DOSE (2X325MG) PO PRN ×2 (11:02→20:25)
[2022-04-01 14:00] VITALS: BP 132/51
[2022-04-01 16:24] VITALS: BP_SYST 147; BP_SYST 151; BP_SYST 153; BP_DIAS 64; BP_DIAS 66
[2022-04-01] MEDS: cefTRIAXone SOD 1 GM in D5W MINI-BAG PLUS 50 ML IV SCH (16:31)
[2022-04-01 19:44] VITALS: BP 137/88
[2022-04-01 20:19] VITALS: BP 133/85
[2022-04-01] MEDS: guaiFENesin DM LIQ 10ML UD PO PRN (20:24)
[2022-04-01] MEDS: ROSUVASTATIN 10 MG TAB (CRESTOR) PO SCH (20:24)
[2022-04-02] MEDS: LEVOTHYROXINE 88MCG TABLET (0.088 MG) PO SCH (05:35)
[2022-04-02] MEDS: HEPARIN SOD (PORCINE) 5000UNITS/ML 1ML VIAL/SYRINGE SC SCH ×3 (05:35→21:21)
[2022-04-02 05:43] VITALS: BP 129/55
[2022-04-02 06:09] LABS: BASO % 0.5 % (0.0-1.0); EOS # 0.3 10^3/uL (0.0-0.5); EOS % 3.1 % (0.0-3.0); HEMATOCRIT 28.8 % (42.0-52.0); HEMOGLOBIN 8.6 g/dl (13.5-17.5); LYMPH # 1.7 10^3/uL (1.5-5.0); MEAN CORPUSCULAR HEMOGLOBIN 27.6 pg (27.0-33.0); MEAN CORPUSCULAR HGB CONC 29.9 g/dl (32.0-36.5); MEAN CORPUSCULAR VOLUME 92.3 fl (80.0-96.0); MONO # 0.6 10^3/uL (0.0-0.8); MONO % 6.6 % (2.0-8.0); NEUTROPHILS # 5.8 10^3/uL (1.5-8.5); NEUTROPHILS % 69.4 % (36.0-66.0); PLATELET COUNT, AUTOMATED 226 10^3/uL (150-450); RED BLOOD COUNT 3.12 10^6/uL (4.30-6.10); WHITE BLOOD COUNT 8.4 10^3/uL (4.0-10.0)
[2022-04-02] MEDS: ADVAIR HFA 45/21MCG INHALER INH SCH ×2 (08:02→19:53)
[2022-04-02] MEDS ORDERED: LIDOCAINE 5% (LIDODERM) PATCH TD ONE (09:00)
[2022-04-02] MEDS ORDERED: AZITHROMYCIN 250MG TABLET PO SCH (09:00)
[2022-04-02] MEDS: FINASTERIDE 5MG TAB PO SCH (09:08)
[2022-04-02] MEDS: MAGNESIUM OXIDE 400MG TAB (MAG-OX) PO SCH (09:08)
[2022-04-02] MEDS: TAMSULOSIN 0.4 MG CAP PO SCH (09:08)
[2022-04-02] MEDS: ACETAMINOPHEN TAB 650MG DOSE (2X325MG) PO PRN ×3 (09:09→21:20)
[2022-04-02 10:08] LABS: FOLATE 8.2 ng/mL (>3.0)
[2022-04-02 12:00] VITALS: BP_SYST 124; BP_SYST 139; BP_SYST 143; BP_DIAS 59; BP_DIAS 67; BP_DIAS 69
[2022-04-02 12:01] VITALS: BP 121/58
[2022-04-02] MEDS ORDERED: MECLIZINE 12.5 MG TAB PO PRN (12:40)
[2022-04-02 14:00] VITALS: BP 143/61
[2022-04-02] MEDS: IPRATROPIUM 0.5MG/ALBUTEROL 2.5MG INH SOL UD 3ML (DUONEB) NEB SCH ×2 (14:13→19:53)
[2022-04-02] MEDS: LevoFLOXacin 750 MG TABLET PO SCH (15:29)
[2022-04-02 17:09] LABS: BODY FLUID CULTURE Not indicated. (.); LEGIONELLA ANTIGEN URINE Negative (Negative); ORGANISM ID Not indicated. (.); SPECIMEN SOURCE Urine (.); URINE STREP PNEUMONIAE ANTIGEN Negative (Negative)
[2022-04-02] MEDS: ROSUVASTATIN 10 MG TAB (CRESTOR) PO SCH (21:20)
[2022-04-02] MEDS: **NOTE PATIENT COMMENT** MISC XX SCH (21:21)
[2022-04-02] MEDS: GABAPENTIN 100 MG CAP PO PRN (21:25)
[2022-04-02 22:00] VITALS: BP 134/63
[2022-04-03] MEDS: IPRATROPIUM 0.5MG/ALBUTEROL 2.5MG INH SOL UD 3ML (DUONEB) NEB SCH ×2 (01:34→07:09)
[2022-04-03] MEDS: LEVOTHYROXINE 88MCG TABLET (0.088 MG) PO SCH (05:28)
[2022-04-03] MEDS: HEPARIN SOD (PORCINE) 5000UNITS/ML 1ML VIAL/SYRINGE SC SCH ×3 (05:28→21:10)
[2022-04-03 06:00] VITALS: BP 134/63
[2022-04-03 06:31] LABS: BASO # 0.1 10^3/uL (0.0-0.2); BASO % 0.6 % (0.0-1.0); EOS # 0.2 10^3/uL (0.0-0.5); EOS % 2.4 % (0.0-3.0); HEMOGLOBIN 8.2 g/dl (13.5-17.5); LYMPH # 1.9 10^3/uL (1.5-5.0); LYMPH % 22.4 % (24.0-44.0); MEAN CORPUSCULAR HEMOGLOBIN 27.8 pg (27.0-33.0); MEAN CORPUSCULAR HGB CONC 31.5 g/dl (32.0-36.5); MEAN CORPUSCULAR VOLUME 88.1 fl (80.0-96.0); MONO # 0.6 10^3/uL (0.0-0.8); MONO % 7.4 % (2.0-8.0); NEUTROPHILS # 5.6 10^3/uL (1.5-8.5); NEUTROPHILS % 66.8 % (36.0-66.0); PLATELET COUNT, AUTOMATED 230 10^3/uL (150-450); RED BLOOD COUNT 2.95 10^6/uL (4.30-6.10); WHITE BLOOD COUNT 8.4 10^3/uL (4.0-10.0)
[2022-04-03 07:00] LABS: BLOOD UREA NITROGEN 12 MG/DL (7-18); CALCIUM LEVEL 8.7 MG/DL (8.8-10.2); CARBON DIOXIDE LEVEL 27 MEQ/L (21-32); CHLORIDE LEVEL 111 MEQ/L (98-107); GLOMERULAR FILTRATION RATE > 60.0 (>42); GLUCOSE, FASTING 76 MG/DL (70-100); SODIUM LEVEL 142 MEQ/L (136-145)
[2022-04-03] MEDS: ADVAIR HFA 45/21MCG INHALER INH SCH ×2 (07:09→19:15)
[2022-04-03] MEDS: GABAPENTIN 100 MG CAP PO PRN ×2 (08:20→21:10)
[2022-04-03] MEDS: MAGNESIUM OXIDE 400MG TAB (MAG-OX) PO SCH (08:20)
[2022-04-03] MEDS: FINASTERIDE 5MG TAB PO SCH (08:20)
[2022-04-03] MEDS: ACETAMINOPHEN TAB 650MG DOSE (2X325MG) PO PRN ×2 (08:21→21:15)
[2022-04-03] MEDS ORDERED: LIDOCAINE 5% (LIDODERM) PATCH TD PRN (09:00)
[2022-04-03] MEDS ORDERED: IPRATROPIUM 0.5MG/ALBUTEROL 2.5MG INH SOL UD 3ML (DUONEB) NEB PRN (10:00)
[2022-04-03 12:59] VITALS: BP_SYST 134; BP_SYST 135; BP_SYST 140; BP_DIAS 58; BP_DIAS 62; BP_DIAS 71
[2022-04-03 14:00] VITALS: BP 143/59
[2022-04-03] MEDS: **NOTE PATIENT COMMENT** MISC XX SCH (21:00)
[2022-04-03] MEDS: ROSUVASTATIN 10 MG TAB (CRESTOR) PO SCH (21:10)
[2022-04-04] MEDS: LEVOTHYROXINE 88MCG TABLET (0.088 MG) PO SCH (05:30)
[2022-04-04] MEDS: HEPARIN SOD (PORCINE) 5000UNITS/ML 1ML VIAL/SYRINGE SC SCH (05:30)
[2022-04-04 06:00] VITALS: BP 152/71
[2022-04-04 07:06] LABS: BASO # 0.1 10^3/uL (0.0-0.2); BASO % 0.7 % (0.0-1.0); EOS # 0.4 10^3/uL (0.0-0.5); EOS % 5.6 % (0.0-3.0); HEMATOCRIT 28.2 % (42.0-52.0); HEMOGLOBIN 8.7 g/dl (13.5-17.5); LYMPH # 2.1 10^3/uL (1.5-5.0); LYMPH % 29.7 % (24.0-44.0); MEAN CORPUSCULAR HEMOGLOBIN 27.6 pg (27.0-33.0); MEAN CORPUSCULAR HGB CONC 30.9 g/dl (32.0-36.5); MEAN CORPUSCULAR VOLUME 89.5 fl (80.0-96.0); MONO # 0.5 10^3/uL (0.0-0.8); MONO % 7.6 % (2.0-8.0); PLATELET COUNT, AUTOMATED 264 10^3/uL (150-450); RED BLOOD COUNT 3.15 10^6/uL (4.30-6.10); WHITE BLOOD COUNT 7.1 10^3/uL (4.0-10.0)
[2022-04-04] MEDS: ADVAIR HFA 45/21MCG INHALER INH SCH (07:19)
[2022-04-04] MEDS: GABAPENTIN 100 MG CAP PO PRN (08:26)
[2022-04-04] MEDS: FINASTERIDE 5MG TAB PO SCH (08:26)
[2022-04-04] MEDS: MAGNESIUM OXIDE 400MG TAB (MAG-OX) PO SCH (08:26)
[2022-04-04] MEDS: TAMSULOSIN 0.4 MG CAP PO SCH (08:26)
[2022-04-04 08:28] VITALS: BP 117/54
[2022-04-04 08:38] VITALS: BP 117/54
[2022-04-04 09:00] VITALS: BP_SYST 124; BP_SYST 133; BP_DIAS 57; BP_DIAS 59
[2022-04-04] MEDS ORDERED: lisinopriL 5 MG TAB PO SCH (09:00)
[2022-04-04] MEDS ORDERED: ALEV220T22 PO (12:19)
[2022-04-04] MEDS ORDERED: ALBU8.5H INH ×2 (12:19→12:23)
[2022-04-04] MEDS ORDERED: MECL-136 PO (12:19)
[2022-04-04] MEDS: LevoFLOXacin 750 MG TABLET PO SCH (13:14)
== END 2022-04-04 13:46 | disposition home or self-care (01) | DRG 194 ==
LOC: M ED 11:41 → M ED INP 17:59 → ENRESERV 19:49 → M MSPAV 21:03
PROVIDERS: ADMIT Internal Medicine; ATTEND Internal Medicine
DX: J18.1 Lobar pneumonia, unspecified organism (principal); J44.0 Chronic obstructive pulmonary disease with (acute) lower respiratory infection; N17.9 Acute kidney failure, unspecified; J44.1 Chronic obstructive pulmonary disease with (acute) exacerbation; E03.9 Hypothyroidism, unspecified; E78.5 Hyperlipidemia, unspecified; N40.0 Benign prostatic hyperplasia without lower urinary tract symptoms; R53.1 Weakness; D63.8 Anemia in other chronic diseases classified elsewhere; R63.4 Abnormal weight loss; R07.89 Other chest pain; I95.1 Orthostatic hypotension; R41.3 Other amnesia; Z87.891 Personal history of nicotine dependence; Z79.890 Hormone replacement therapy; Z79.899 Other long term (current) drug therapy

== ENCOUNTER 2023-03-08 14:55 | Emergency (ER) | payer MEDICAID, MEDICARE, OTHER ==
[~2023-03-08] VITALS: Ht 170.2 cm; Wt 49.5 kg
[~2023-03-08 14:55] MED LIST changes: +ADV100INH INH; +ALBU8.5H INH; +ALEV220T22 PO; +DONE5TAB82 PO; +MAGN400T2 PO; +MECL-136 PO; +MECL-209 PO; -MECL1TAB31 PO
[2023-03-08] MEDS ORDERED: SERT25TA21 (15:11)
[2023-03-08] MEDS ORDERED: MYRB25TA PO (15:11)
[2023-03-08] MEDS ORDERED: ACETAMINOPHEN TAB 650MG DOSE (2X325MG) PO ONE (17:15)
[2023-03-08 18:06] LABS: BASO % 0.5 % (0.0-1.0); EOS # 0.4 10^3/uL (0.0-0.5); EOS % 4.5 % (0.0-3.0); HEMATOCRIT 35.3 % (42.0-52.0); HEMOGLOBIN 11.3 g/dl (13.5-17.5); LYMPH # 2.1 10^3/uL (1.5-5.0); LYMPH % 24.3 % (24.0-44.0); MEAN CORPUSCULAR HEMOGLOBIN 28.7 pg (27.0-33.0); MEAN CORPUSCULAR VOLUME 89.6 fl (80.0-96.0); MONO # 0.7 10^3/uL (0.0-0.8); MONO % 7.6 % (2.0-8.0); NEUTROPHILS # 5.4 10^3/uL (1.5-8.5); NEUTROPHILS % 62.8 % (36.0-66.0); PLATELET COUNT, AUTOMATED 192 10^3/uL (150-450); RED BLOOD COUNT 3.94 10^6/uL (4.30-6.10); WHITE BLOOD COUNT 8.7 10^3/uL (4.0-10.0)
[2023-03-08 18:17] LABS: APPEARANCE, URINE HAZY (CLEAR); BACTERIA, URINE AUTO NEGATIVE (NEGATIVE); BILIRUBIN, URINE AUTO NEGATIVE (NEGATIVE); BLOOD, URINE BLOOD NEGATIVE (NEGATIVE); COLOR, URINE YELLOW (YELLOW); GLUCOSE, URINE (UA) AUTO NEGATIVE (NEGATIVE); KETONE, URINE AUTO NEGATIVE (NEGATIVE); LEUKOCYTE ESTERASE, URINE AUTO NEGATIVE (NEGATIVE); MUCUS, URINE SMALL (NEGATIVE); NITRITE, URINE AUTO NEGATIVE (NEGATIVE); PROTEIN, URINE AUTO NEGATIVE (NEGATIVE); RBC, URINE AUTO 19 /HPF (0-3); SPECIFIC GRAVITY URINE AUTO 1.019 (1.002-1.035); SQUAMOUS EPITHELIAL CELL UR AU 0 /HPF (0-6); WBC, URINE AUTO 1 /HPF (0-3)
[2023-03-08 18:32] LABS: ALBUMIN 3.5 G/DL (3.2-5.2); BILIRUBIN,DIRECT 0.1 MG/DL (<0.4); BILIRUBIN,TOTAL 0.3 MG/DL (0.3-1.2); CALCIUM LEVEL 9.2 MG/DL (8.3-10.6); CREATININE FOR GFR 1.44 MG/DL (0.70-1.30); GLOMERULAR FILTRATION RATE 50.6 (>42); MAGNESIUM LEVEL 2.3 MG/DL (1.8-2.4); POTASSIUM SERUM 4.8 MMOL/L (3.5-5.1); TOTAL PROTEIN 6.1 G/DL (5.7-8.2)
[2023-03-08 18:34] LABS: FREE T4 1.3 NG/DL (0.89-1.76); THYROID STIMULATING HORMONE 0.978 uIU/ML (0.55-4.78)
[2023-03-08 19:04] VITALS: BP 159/72; TEMP 97.9; O2SAT 99
== END 2023-03-08 19:06 | disposition home or self-care (01) ==
LOC: M ED 14:55
DX: R51.9 Headache, unspecified (principal); M25.752 Osteophyte, left hip; M16.12 Unilateral primary osteoarthritis, left hip; R00.1 Bradycardia, unspecified; I44.0 Atrioventricular block, first degree; J44.9 Chronic obstructive pulmonary disease, unspecified; N40.0 Benign prostatic hyperplasia without lower urinary tract symptoms; D64.9 Anemia, unspecified; F17.200 Nicotine dependence, unspecified, uncomplicated; Z79.52 Long term (current) use of systemic steroids; Z79.891 Long term (current) use of opiate analgesic; Z79.899 Other long term (current) drug therapy

== ENCOUNTER 2023-05-27 12:21 | Observation (INO) | payer MEDICARE, OTHER ==
[~2023-05-27] VITALS: Ht 177.8 cm; Wt 48.7 kg
[~2023-05-27 12:21] MED LIST changes: -ACET650T61 PO; -ASPI81CH33 PO; -ASPI81TA26 PO; -DICL100G10 TOP; -FERR32TA PO; -MECL-86 PO; -MYRB50TA PO; -SERT-141 PO; -STIO1AER IN
[2023-05-27] MEDS ORDERED: ASPI81CH33 PO (12:38)
[2023-05-27 13:17] LABS: BASO % 0.5 % (0.0-1.0); EOS # 0.2 10^3/uL (0.0-0.5); EOS % 2.1 % (0.0-3.0); HEMATOCRIT 40.7 % (42.0-52.0); LYMPH # 2.1 10^3/uL (1.5-5.0); LYMPH % 27.7 % (24.0-44.0); MEAN CORPUSCULAR HEMOGLOBIN 29.3 pg (27.0-33.0); MEAN CORPUSCULAR HGB CONC 31.9 g/dl (32.0-36.5); MEAN CORPUSCULAR VOLUME 91.7 fl (80.0-96.0); MONO # 0.6 10^3/uL (0.0-0.8); MONO % 7.4 % (2.0-8.0); NEUTROPHILS # 4.8 10^3/uL (1.5-8.5); PLATELET COUNT, AUTOMATED 169 10^3/uL (150-450); RED BLOOD COUNT 4.44 10^6/uL (4.30-6.10); WHITE BLOOD COUNT 7.7 10^3/uL (4.0-10.0)
[2023-05-27 13:36] LABS: BLOOD UREA NITROGEN 23 MG/DL (9-23); CARBON DIOXIDE LEVEL 30 MMOL/L (20-31); CHLORIDE LEVEL 104 MMOL/L (98-107); CREATININE FOR GFR 1.21 MG/DL (0.70-1.30); GLOMERULAR FILTRATION RATE > 60.0 (>42); GLUCOSE, FASTING 90 MG/DL (74-106); POTASSIUM SERUM 4.4 MMOL/L (3.5-5.1); SODIUM LEVEL 135 MMOL/L (136-145)
[2023-05-27] MEDS ORDERED: KETOROLAC 30 MG/ML 1ML VIAL IV ONE (14:20)
[2023-05-27] MEDS ORDERED: NS 500 ML IV ONE (14:20)
[2023-05-27] MEDS ORDERED: ONDANSETRON 4MG 2ML VIAL IV ONE (14:20)
[2023-05-27] MEDS ORDERED: BISACODYL 10MG SUPP PR ONE (15:40)
[2023-05-27] MEDS ORDERED: cefTRIAXone SOD 1 GM in D5W MINI-BAG PLUS 50 ML IV ONE (15:45)
[2023-05-27] MEDS ORDERED: MED REC IN PROGRESS XX SCH (18:30)
[2023-05-27] MEDS ORDERED: ASPI81TA26 PO (19:25)
[2023-05-27] MEDS ORDERED: MECL-86 PO (19:30)
[2023-05-27] MEDS ORDERED: MYRB50TA PO (19:32)
[2023-05-27] MEDS ORDERED: ACET650T61 PO (19:35)
[2023-05-27] MEDS ORDERED: ONDANSETRON 4MG 2ML VIAL IV PRN (19:35)
[2023-05-27] MEDS ORDERED: KETOROLAC 30 MG/ML 1ML VIAL IV PRN (19:35)
[2023-05-27] MEDS ORDERED: STIO1AER IN (19:37)
[2023-05-27] MEDS ORDERED: SERT-141 PO (19:40)
[2023-05-27] MEDS ORDERED: FERR32TA PO (19:41)
[2023-05-27] MEDS ORDERED: DICL100G10 TOP (19:44)
[2023-05-27] MEDS ORDERED: HOME MED LIST COMPLETE! XX SCH (19:55)
[2023-05-27] MEDS: LR 1,000 ML IV SCH (20:23)
[2023-05-27 23:33] VITALS: BP 114/51; TEMP 97.2; O2SAT 98
[2023-05-28] VITALS (9 sets, daily range): BP systolic 113–141; BP diastolic 46–58; TEMP 97.5–98.5; O2SAT 9–97
[2023-05-28] MEDS: LR 1,000 ML IV SCH ×3 (05:50→20:49)
[2023-05-28 06:52] LABS: HEMATOCRIT 32.8 % (42.0-52.0); MEAN CORPUSCULAR HEMOGLOBIN 28.9 pg (27.0-33.0); MEAN CORPUSCULAR HGB CONC 31.7 g/dl (32.0-36.5); MEAN CORPUSCULAR VOLUME 91.1 fl (80.0-96.0); PLATELET COUNT, AUTOMATED 152 10^3/uL (150-450); WHITE BLOOD COUNT 5.9 10^3/uL (4.0-10.0)
[2023-05-28 06:57] LABS: HEMOGLOBIN 10.4 g/dl (13.5-17.5)
[2023-05-28 07:21] LABS: CALCIUM LEVEL 8.6 MG/DL (8.3-10.6); CREATININE FOR GFR 1.67 MG/DL (0.70-1.30); GLOMERULAR FILTRATION RATE 42.7 (>42); POTASSIUM SERUM 5.1 MMOL/L (3.5-5.1)
[2023-05-28] MEDS: TAMSULOSIN 0.4 MG CAP PO SCH (09:32)
[2023-05-28] MEDS: FLUTICASONE PROP 0.05% NASAL SPRAY 16 GM (FLONASE) NARES SCH (15:42)
[2023-05-28] MEDS: cefTRIAXone SOD 1 GM in D5W MINI-BAG PLUS 50 ML IV SCH (16:00)
[2023-05-28] MEDS ORDERED: ISOVUE-300 61% 100ML VIAL As Ordered ONE (16:54)
[2023-05-28] MEDS ORDERED: MIDAZOLAM INJ 2MG/2ML VIAL As Ordered ONE (17:17)
[2023-05-28] MEDS ORDERED: propofoL 200 MG/20 ML VIAL As Ordered ONE (17:17)
[2023-05-28] MEDS ORDERED: fentaNYL 100 MCG/2 ML INJECTION As Ordered ONE (17:17)
[2023-05-28] MEDS ORDERED: ONDANSETRON 4MG 2ML VIAL IV PRN (17:35)
[2023-05-28] MEDS ORDERED: HYDROMORPHONE HCL 0.5 MG/ 0.5 ML SYRINGE IV PRN (17:35)
[2023-05-28] MEDS ORDERED: oxyCODONE 5MG TAB PO PRN (17:35)
[2023-05-28] MEDS ORDERED: fentaNYL 100 MCG/2 ML INJECTION IV PRN (17:35)
[2023-05-28] MEDS ORDERED: LR 1,000 ML IV SCH (17:35)
[2023-05-29 02:00] VITALS: BP 137/67; TEMP 97.9; O2SAT 94
[2023-05-29 06:00] VITALS: BP 119/59; TEMP 98.1; O2SAT 93
[2023-05-29] MEDS ORDERED: LEVOTHYROXINE 88MCG TABLET (0.088 MG) PO SCH (06:00)
[2023-05-29 07:25] LABS: BASO % 0.6 % (0.0-1.0); EOS # 0.3 10^3/uL (0.0-0.5); EOS % 4.2 % (0.0-3.0); HEMATOCRIT 32.8 % (42.0-52.0); HEMOGLOBIN 10.6 g/dl (13.5-17.5); LYMPH # 1.3 10^3/uL (1.5-5.0); LYMPH % 19.4 % (24.0-44.0); MEAN CORPUSCULAR HEMOGLOBIN 29.4 pg (27.0-33.0); MEAN CORPUSCULAR HGB CONC 32.3 g/dl (32.0-36.5); MEAN CORPUSCULAR VOLUME 90.9 fl (80.0-96.0); MONO # 0.6 10^3/uL (0.0-0.8); MONO % 8.2 % (2.0-8.0); NEUTROPHILS # 4.6 10^3/uL (1.5-8.5); NEUTROPHILS % 67.5 % (36.0-66.0); PLATELET COUNT, AUTOMATED 150 10^3/uL (150-450); RED BLOOD COUNT 3.61 10^6/uL (4.30-6.10); WHITE BLOOD COUNT 6.9 10^3/uL (4.0-10.0)
[2023-05-29 07:53] LABS: CALCIUM LEVEL 8.1 MG/DL (8.3-10.6); CREATININE FOR GFR 1.5 MG/DL (0.70-1.30); GLOMERULAR FILTRATION RATE 48.3 (>42); POTASSIUM SERUM 4.6 MMOL/L (3.5-5.1)
[2023-05-29 08:00] VITALS: BP 122/58; TEMP 97.9; O2SAT 92
[2023-05-29] MEDS ORDERED: TIOTROPIUM INHALER/CAPSULE (SPIRIVA) INH SCH (08:00)
[2023-05-29] MEDS ORDERED: SYMBICORT 80/4.5MCG INHALER 6GM INH SCH (08:00)
[2023-05-29] MEDS ORDERED: FINASTERIDE 5MG TAB PO SCH (09:00)
[2023-05-29] MEDS ORDERED: GABAPENTIN 100 MG CAP PO SCH (09:00)
[2023-05-29] MEDS ORDERED: ASPIRIN 81MG ENTERIC TABLET PO SCH (09:00)
[2023-05-29] MEDS ORDERED: FERROUS GLUCONATE 324 MG TAB PO SCH (09:00)
[2023-05-29] MEDS ORDERED: SERTRALINE HCL 50 MG TAB PO SCH (09:00)
[2023-05-29] MEDS ORDERED: MAGNESIUM OXIDE 400MG TAB (MAG-OX) PO SCH (09:00)
[2023-05-29] MEDS: TAMSULOSIN 0.4 MG CAP PO SCH (09:45)
[2023-05-29] MEDS: FLUTICASONE PROP 0.05% NASAL SPRAY 16 GM (FLONASE) NARES SCH (09:46)
[2023-05-29] MEDS ORDERED: ACETAMINOPHEN 650MG ER TAB (TYLENOL ARTHRITIS) PO PRN (10:20)
[2023-05-29] MEDS ORDERED: MECLIZINE 25 MG TABLET PO PRN (10:20)
[2023-05-29] MEDS ORDERED: ALBUTEROL 90 MCG/ACT 8GM HFA INHALER INH PRN (10:20)
[2023-05-29] MEDS ORDERED: NS 1,000 ML IV ONE (11:00)
[2023-05-29 14:00] VITALS: BP 118/58; TEMP 97.7; O2SAT 97
[2023-05-29 15:14] LABS: CREATININE FOR GFR 1.45 MG/DL (0.70-1.30); GLOMERULAR FILTRATION RATE 50.2 (>42); POTASSIUM SERUM 4.4 MMOL/L (3.5-5.1)
[2023-05-29] MEDS: cefTRIAXone SOD 1 GM in D5W MINI-BAG PLUS 50 ML IV SCH (16:00)
[2023-05-29] MEDS ORDERED: FORMOTEROL FUMARATE 20 MCG/2 ML INHALATION SOLUTION (PERFOROMIST) INH SCH (20:00)
[2023-05-29] MEDS ORDERED: ROSUVASTATIN 10 MG TAB (CRESTOR) PO SCH (21:00)
[2023-05-30] MEDS ORDERED: TAMSULOSIN 0.4 MG CAP PO SCH (09:00)
== END 2023-05-29 16:05 | disposition home or self-care (01) ==
LOC: M ED 12:21 → M ED INP 12:22 → M MS5PR 23:33
PROVIDERS: ADMIT Internal Medicine; ATTEND Urology
DX: N13.1 Hydronephrosis with ureteral stricture, not elsewhere classified (principal); N17.9 Acute kidney failure, unspecified; N31.2 Flaccid neuropathic bladder, not elsewhere classified; N40.1 Benign prostatic hyperplasia with lower urinary tract symptoms; R10.31 Right lower quadrant pain; R30.0 Dysuria; R31.9 Hematuria, unspecified; J44.9 Chronic obstructive pulmonary disease, unspecified; D64.9 Anemia, unspecified; E78.5 Hyperlipidemia, unspecified; E03.9 Hypothyroidism, unspecified; R63.4 Abnormal weight loss; Z79.899 Other long term (current) drug therapy; Z79.82 Long term (current) use of aspirin; Z79.890 Hormone replacement therapy; F17.200 Nicotine dependence, unspecified, uncomplicated; Z80.8 Family history of malignant neoplasm of other organs or systems
CPT/HCPCS: 36415; 52332; 74176; 76000; 76775; 80048; 81001; 85025; 85027; 87635; 93005; 94640; 96361; 96365; 96375; 96376; 99284; C1769; C1894; C2617; G0378; J0696; J1885; J2250; J2405; J3010; Q9967

== ENCOUNTER → 2023-05-27 | Outpatient (CLI) | payer OTHER, MEDICARE ==
[~2023-05-27] MED LIST changes: +ACET650T61 PO; +ASPI81CH33 PO; +ASPI81TA26 PO; +DICL100G10 TOP; +FERR32TA PO; +MECL-86 PO; +MYRB25TA PO; +MYRB50TA PO; +SERT-141 PO; +SERT25TA21; +STIO1AER IN
== END ==
LOC: M RAD 10:37
PROVIDERS: ATTEND Physician Assistant
DX: N40.1 Benign prostatic hyperplasia with lower urinary tract symptoms (principal)

== ENCOUNTER → 2023-05-30 | Outpatient (CLI) | payer OTHER, MEDICARE ==
[~2023-05-30] MED LIST changes: +ACET650T61 PO; +ASPI81CH33 PO; +ASPI81TA26 PO; +DICL100G10 TOP; +FERR32TA PO; +MECL-86 PO; +MYRB50TA PO; +SERT-141 PO; +STIO1AER IN
[2023-05-30 11:56] LABS: CALCIUM LEVEL 8.8 MG/DL (8.3-10.6); CREATININE FOR GFR 1.35 MG/DL (0.70-1.30); GLOMERULAR FILTRATION RATE 54.6 (>42); POTASSIUM SERUM 4.4 MMOL/L (3.5-5.1)
== END ==
LOC: M LAB 09:48
PROVIDERS: ATTEND Student in an Organized Health Care Education/Training Program
DX: R42 Dizziness and giddiness (principal)

== ENCOUNTER → 2023-06-14 | Outpatient (CLI) | payer MEDICARE, OTHER ==
[2023-06-14 11:42] LABS: HEMATOCRIT 37.2 % (42.0-52.0); HEMOGLOBIN 11.6 g/dl (13.5-17.5); MEAN CORPUSCULAR HEMOGLOBIN 29.1 pg (27.0-33.0); MEAN CORPUSCULAR HGB CONC 31.2 g/dl (32.0-36.5); MEAN CORPUSCULAR VOLUME 93.2 fl (80.0-96.0); PLATELET COUNT, AUTOMATED 187 10^3/uL (150-450); RED BLOOD COUNT 3.99 10^6/uL (4.30-6.10); WHITE BLOOD COUNT 5.8 10^3/uL (4.0-10.0)
[2023-06-14 12:08] LABS: ALBUMIN 3.8 G/DL (3.2-5.2); BILIRUBIN,TOTAL 0.3 MG/DL (0.3-1.2); CALCIUM LEVEL 9.3 MG/DL (8.3-10.6); CREATININE FOR GFR 1.42 MG/DL (0.70-1.30); GLOMERULAR FILTRATION RATE 51.5 (>42); POTASSIUM SERUM 4.6 MMOL/L (3.5-5.1); TOTAL PROTEIN 6.6 G/DL (5.7-8.2)
== END ==
LOC: M RAD 08:28
PROVIDERS: ATTEND Urology
DX: N20.1 Calculus of ureter (principal); R00.1 Bradycardia, unspecified; I45.9 Conduction disorder, unspecified; T83.192A Other mechanical complication of indwelling ureteral stent, initial encounter

== ENCOUNTER 2023-06-19 06:01 | Day surgery (SDC) | payer MEDICARE, OTHER ==
[~2023-06-19] VITALS: Ht 170.2 cm; Wt 45.4 kg
[~2023-06-19 06:01] MED LIST changes: +MUPI2OI EXT
[2023-06-19] MEDS ORDERED: ceFAZolin SOD 2 GM in IV 1 EA IV ONE (06:40)
[2023-06-19] MEDS ORDERED: LIDOCAINE 2% 100MG/5ML SDV (FOR ANES.) As Ordered ONE (07:51)
[2023-06-19] MEDS ORDERED: propofoL 200 MG/20 ML VIAL As Ordered ONE (07:51)
[2023-06-19] MEDS ORDERED: fentaNYL 100 MCG/2 ML INJECTION As Ordered ONE (08:38)
[2023-06-19] MEDS ORDERED: ONDANSETRON 4MG 2ML VIAL As Ordered ONE (09:26)
[2023-06-19 10:29] VITALS: BP 138/65; TEMP 96.8; O2SAT 98
== END 2023-06-19 10:30 | disposition home or self-care (01) ==
LOC: M SDC 06:01 → UNDOADMIN 06:24 → M OR 06:24 → M SDC 10:30
PROVIDERS: ATTEND Urology
DX: N20.1 Calculus of ureter (principal); E03.9 Hypothyroidism, unspecified; E78.00 Pure hypercholesterolemia, unspecified; F32.A Depression, unspecified; F41.9 Anxiety disorder, unspecified; M54.9 Dorsalgia, unspecified; R51.9 Headache, unspecified; J44.9 Chronic obstructive pulmonary disease, unspecified; N40.0 Benign prostatic hyperplasia without lower urinary tract symptoms; F17.210 Nicotine dependence, cigarettes, uncomplicated; Z79.899 Other long term (current) drug therapy; Z79.82 Long term (current) use of aspirin; Z79.1 Long term (current) use of non-steroidal anti-inflammatories (NSAID); Z79.890 Hormone replacement therapy
CPT/HCPCS: 50590; 74018; J2405; J3010

== ENCOUNTER 2023-07-24 06:06 | Day surgery (SDC) | payer MEDICARE, OTHER ==
[~2023-07-24] VITALS: Ht 170.2 cm; Wt 46.3 kg
[~2023-07-24 06:06] MED LIST changes: +BAYE81TA10 PO; +ceFAZolin SOD 2 GM in IV 1 EA IV ONE
[2023-07-24] MEDS ORDERED: LR 1,000 ML IV SCH ×2 (06:35→08:10)
[2023-07-24] MEDS ORDERED: fentaNYL 100 MCG/2 ML INJECTION As Ordered ONE (06:47)
[2023-07-24] MEDS ORDERED: MIDAZOLAM INJ 2MG/2ML VIAL As Ordered ONE (06:47)
[2023-07-24] MEDS ORDERED: ONDANSETRON 4MG 2ML VIAL As Ordered ONE (06:52)
[2023-07-24] MEDS ORDERED: KETOROLAC 60MG 2ML VIAL As Ordered ONE (06:52)
[2023-07-24] MEDS ORDERED: propofoL 200 MG/20 ML VIAL As Ordered ONE (06:54)
[2023-07-24] MEDS ORDERED: LIDOCAINE 2% 100MG/5ML SDV (FOR ANES.) As Ordered ONE (06:54)
[2023-07-24] MEDS ORDERED: ISOVUE-300 61% 100ML VIAL As Ordered ONE (07:15)
[2023-07-24] MEDS ORDERED: ONDANSETRON 4MG 2ML VIAL IV PRN (08:10)
[2023-07-24] MEDS ORDERED: oxyCODONE 5MG TAB PO PRN (08:10)
[2023-07-24] MEDS ORDERED: METOCLOPRAMIDE INJ 10MG/2ML VIAL IV PRN (08:10)
[2023-07-24 14:00] VITALS: BP 139/65; TEMP 98.3; O2SAT 99
== END 2023-07-24 14:11 | disposition home or self-care (01) ==
LOC: M SDC 06:06
PROVIDERS: ATTEND Urology
DX: T83.122A Displacement of indwelling ureteral stent, initial encounter (principal); I10 Essential (primary) hypertension; N40.0 Benign prostatic hyperplasia without lower urinary tract symptoms; Z87.442 Personal history of urinary calculi; E03.9 Hypothyroidism, unspecified; E78.00 Pure hypercholesterolemia, unspecified; Y73.2 Prosthetic and other implants, materials and accessory gastroenterology and urology devices associated with adverse incidents; J44.9 Chronic obstructive pulmonary disease, unspecified; Y92.9 Unspecified place or not applicable; G62.9 Polyneuropathy, unspecified; Z79.899 Other long term (current) drug therapy; Z79.890 Hormone replacement therapy; F17.210 Nicotine dependence, cigarettes, uncomplicated
CPT/HCPCS: 52351; J0690; J1100; J1885; J2250; J2405; J3010

== ENCOUNTER → 2024-02-03 | Outpatient (CLI) | payer MEDICARE, OTHER ==
[~2024-02-03] MED LIST changes: -ROSU40TA4 PO; +ROSU40TA63 PO; -ceFAZolin SOD 2 GM in IV 1 EA IV ONE
== END ==
LOC: M RAD 08:26
PROVIDERS: ATTEND Physician Assistant
DX: Z87.442 Personal history of urinary calculi (principal)

== ENCOUNTER → 2024-05-17 | Outpatient (CLI) | payer MEDICARE, OTHER ==
[~2024-05-17] MED LIST changes: +GABA-1172 PO; -GABA-282 PO; -ROSU40TA63 PO; +ROSU40TA81 PO
== END ==
LOC: M RAD 07:05
PROVIDERS: ATTEND Internal Medicine Pulmonary Disease
DX: R91.8 Other nonspecific abnormal finding of lung field (principal)

== ENCOUNTER → 2024-07-07 | Outpatient (CLI) | payer OTHER, MEDICARE ==
[~2024-07-07] MED LIST changes: -ADV100INH INH; +ADVA1AER8 INH
== END ==
LOC: M WHC 08:25
PROVIDERS: ATTEND Registered Nurse
DX: N63.42 Unspecified lump in left breast, subareolar (principal)
CPT/HCPCS: 76641; 77066; G0279

== ENCOUNTER → 2024-09-29 | Outpatient (CLI) | payer MEDICARE, OTHER | LOC: M PLAIMG 08:34 | PROVIDERS: ATTEND Internal Medicine Pulmonary Disease | DX: R91.8 Other nonspecific abnormal finding of lung field (principal) ==

== ENCOUNTER → 2025-01-24 | Outpatient (CLI) | payer MEDICARE, OTHER ==
[~2025-01-24] MED LIST changes: +D31000CA6 PO; -FLOM0.4C39 PO; +TAMS-18 PO; -VITA-183 PO
== END ==
LOC: M RAD 14:31
PROVIDERS: ATTEND Physician Assistant
DX: N20.0 Calculus of kidney (principal)